=== PATIENT | male | born 1975 | race Caucasian/White ===

== ENCOUNTER 2023-03-29 13:36 | Outpatient (CLI) | payer OTHER, SELFPAY ==
--- NOTE | ~2023-03-29 | PE_ITS ---
EXAMINATION: PET_PETPSMAST_PT DATE: 03/29/2023 15:55 INDICATION: Prostate cancer TECHNIQUE: 9.252 mCi of pipflufolastat F-18 (18-F-DCFPyL) was administered i.v. Low dose computed to mography (CT) images were acquired from the base of the brain to the base of the brain to the proxima l thighs for attenuation correction and anatomic localization. Positron emission tomography (PET) brad ges were acquired in the same distribution beginning 82 minutes after injection. Images including fus ed PET/CT images were reconstructed in axial, coronal, and sagittal planes. Automated exposure contro l technique was employed. The dose-length product was 906.93mGy-cm. COMPARISON: None FINDINGS: Head/neck: Typical pattern of symmetric physiologic increased activity in the lacrimal, parotid and submandibula r glands as well as along the mucosa of the nasal and oral cavities, the teresita-, naso- and hypopharynx, the glottis and esophagus. There is also a typical pattern of symmetric tiny foci of mild likely phy siologic neural ganglia uptake at a few bilateral cervical neural foramina. No pathologically enlarge d cervical lymphadenopathy or suspicious foci of increased uptake in the visualized head or neck. Chest: Lungs are clear with no suspicious pulmonary nodules, pneumonia, pulmonary edema or other pulmonary i nfiltrates. No pleural effusion. Heart size is normal. No pericardial effusion. Thoracic aorta is nor mal in caliber. No pathologically enlarged or PSMA avid thoracic lymphadenopathy. Abdomen/pelvis/proximal thighs: Physiologic renal accumulation and excretion of activity in the kidneys, bladder and along portions o f ureters. Prostatomegaly measuring 6.0 x 6.0 cm. There are no suspicious foci of increased uptake in the prostate with maximal SUV throughout the prostate of 2.6. Photopenic defect associated with a 4. 2 cm exophytic cyst at the upper pole of the right kidney. There are couple low-attenuation hepatic c ysts the larger measuring 1.5 cm. Normal degree and slightly heterogenous pattern of increased uptake throughout the liver and spleen without radiologic correlate or dominant PSMA avid lesion. The gallb ladder, pancreas and bilateral adrenal glands are normal. Moderate uptake scattered throughout the deepak wels with typical duodenal and proximal jejunal predominance and without radiologic correlate, also l ikely physiologic. There is a minimal amount of free fluid in the deep pelvis. No other abnormal foci of increased uptake or pathologically enlarged lymphadenopathy in the abdomen, pelvis or proximal th ighs. Musculoskeletal: There is increased PSMA activity with maximal SUV of 8.4 associated with a mixed lytic and sclerotic lesion involving the right posterior aspect of the L1 vertebral body consistent with metastatic disea se. No other suspicious lytic, blastic or PSMA avid bone lesions. IMPRESSION: 1. Prostatomegaly measuring 6.0 x 6.0 cm but without focal increased PSMA activity identified to iden tify a potential site of primary prostate cancer. 2. Increased uptake associated with a subtle lytic and sclerotic lesion at the L1 vertebral body whic h could be consistent with metastatic prostate cancer. No other lesions suspicious for metastatic dis ease. Reviewed, dictated and finalized at location A. [facility] IMPRESSION: 1. Prostatomegaly measuring 6.0 x 6.0 cm but without focal increased PSMA activ ity identified to identify a potential site of primary prostate cancer. 2. Increased uptake associated with a subtle lytic and sclerotic lesion at the L1 vertebral body which could be consistent with metastatic prostate cancer. No other lesions suspicious for metastatic disease.
== END 2023-03-29 13:37 | disposition home or self-care (01) ==
LOC: ANHIMG 13:39
PROVIDERS: PCP Urology; Visit Provider Urology
DX: C61 Malignant neoplasm of prostate (principal)
CPT/HCPCS: 78815; A9595